=== PATIENT | female | born 1985 ===

== ENCOUNTER 2018-03-05 12:23 | Emergency (ER) | payer BC ==
[2018-03-05 13:22] LABS: BASO # 0.1 K/uL (0.0-0.2); EOS # 0.1 K/uL (0.0-0.7); HEMOGLOBIN 14.8 g/dL (11.0-16.0); LYMPH # 1.3 K/uL (1.0-4.3); LYMPH % 19.2 % (20.0-40.0); MEAN CELL VOLUME 91.4 fL (81.0-99.0); MEAN CORPUSCULAR HEMOGLOBIN 31.8 pg (27.0-31.0); MEAN CORPUSCULAR HGB CONC 34.8 g/dL (33.0-37.0); MEAN PLATELET VOLUME 7.5 fL (7.2-11.7); MONO # 0.5 K/uL (0.0-0.8); MONO % 7.1 % (0.0-10.0); NEUT # 4.7 K/uL (1.8-7.0); NEUT % 70.7 % (50.0-75.0); RBC 4.64 Mil/uL (3.80-5.20); RED CELL DISTRIBUTION WIDTH 12.8 % (11.5-14.5); WHITE BLOOD COUNT 6.6 K/uL (4.8-10.8)
--- NOTE | 2018-03-05 13:29 | C.PDOC ---
History Of Present Illness 32 year old female Miscarriage 1 at 8 weeks presents to the ED for evaluation of vaginal bleeding for 1 hours prior to arrival. The patient described the vaginal bleeding as heavy menstrual like and notes no prior ultrasound for current . Denies fever, chills, and any other associated symptoms. Time Seen by Provider: 03/05/18 12:56 Chief Complaint (Nursing): Female Genitourinary History Per: Patient History/Exam Limitations: no limitations Onset/Duration Of Symptoms: Hrs (x1) Current Symptoms Are (Timing): Still Present Recent travel outside of the [place]: No Past Medical History Reviewed: Historical Data, Nursing Documentation, Vital Signs Vital Signs: Last Vital Signs Temp 98.9 F 03/05/18 12:30 Pulse 88 03/05/18 12:30 Resp 20 03/05/18 12:30 BP 124/90 03/05/18 12:30 Pulse Ox 100 03/05/18 12:30 - Medical History PMH: Asthma Surgical History: Appendectomy Family History: States: Unknown Family Hx - Social History Hx Alcohol Use: Yes Hx Substance Use: No - Immunization History Hx Tetanus Toxoid Vaccination: No Hx Influenza Vaccination: No Hx Pneumococcal Vaccination: No Review Of Systems Except As Marked, All Systems Reviewed And Found Negative. Constitutional: Negative for: Fever, Chills Genitourinary: Positive for: Vaginal Bleeding Physical Exam - Physical Exam Appears: Well, Non-toxic, No Acute Distress, Other ( female.) Skin: Normal Color, Warm, Dry Head: Atraumatic, Normacephalic Eye(s): bilateral: Normal Inspection Oral Mucosa: Moist Neck: Normal ROM, Supple Chest: Symmetrical, No Deformity Cardiovascular: Rhythm Regular, No Murmur Respiratory: Normal Breath Sounds, No Rales, No Rhonchi, No Wheezing Gastrointestinal/Abdominal: Normal Exam, Soft, Tenderness (mild tenderness over the lower abdominal area. ) Extremity: Normal ROM Neurological/Psych: Oriented x3, Normal Speech, Normal Cognition ED Course And Treatment - Laboratory Results Result Diagrams: 03/05/18 13:17 03/05/18 13:17 Lab Interpretation: Abnormal (RH A+, QHCG 80,694,) Urine POC: Positive O2 Sat by Pulse Oximetry: 100 (RA) Pulse Ox Interpretation: Normal Reevaluation Time: 15:29 Reassessment Condition: Improved Medical Decision Making Medical Decision Making: Plan: -Blood sent. HCG Urine Urinalysis US Transvaginal Progress/Update: Patient stable for discharge home. Prescribed Folic Acid. Advised to return to the ED if symptoms worsen. complete AB continue to follow QHCG as needed. Disposition Doctor Will See Patient In The: Office Counseled Patient/Family Regarding: Studies Performed, Diagnosis - Disposition Referrals: [facility] [Outside] [facility]Outside[facility] Disposition: HOME/ ROUTINE Disposition Time: 15:29 Condition: GOOD Additional Instructions: QHC,694 Blood: A+ US: no hay embarasso en [place] examen de ultrasonido Va tener flujo menstrual mas ruthie y mas pesada que usual Repeta [place] QHCG en 3 hilario para asegurar que la hormona esta BAJANDO Sigue con [facility] OBGYN abena necessario Instructions: Miscarriage (DC), Repeated Miscarriage Forms: [employer] ([place]an) Print Language: CZECH - Clinical Impression Clinical Impression: Complete miscarriage - Scribe Statement The provider has reviewed the documentation as recorded by the Scribe (Ema Terrell) Provider Attestation: All medical record entries made by the Scribe were at my direction and personally dictated by me. I have reviewed the chart and agree that the record accurately reflects my personal performance of the history, physical exam, medical decision making, and the department course for this patient. I have also personally directed, reviewed, and agree with the discharge instructions and disposition.
[2018-03-05 13:31] LABS: HCG,QUALITATIVE URINE POSITIVE (NEGATIVE); URINE BILIRUBIN NEGATIVE (NEGATIVE); URINE BLOOD 3+ (NEGATIVE); URINE CLARITY Turbid (Clear); URINE COLOR Amber (YELLOW); URINE GLUCOSE (UA) NORMAL (Normal); URINE LEUKOCYTE ESTERASE NEG Leu/uL (Negative); URINE PROTEIN 2+ mg/dL (NEGATIVE); URINE UROBILINOGEN NORMAL mg/dL (0.2-1.0)
[2018-03-05 13:41] LABS: ALB/GLOB RATIO 1.4 (1.0-2.1); ALBUMIN 4.4 g/dL (3.5-5.0); ALT/SGPT 25 U/L (9-52); AST/SGOT 27 U/L (14-36); BLOOD UREA NITROGEN 10 mg/dL (7-17); CALCIUM 8.7 mg/dl (8.6-10.4); GFR NON-AFRICAN AMERICAN > 60
--- NOTE | 2018-03-05 15:22 | US ---
Date of service: 03/05/2018 HISTORY: 8 wks, ? ectopic vs miscarraige COMPARISON: None available. TECHNIQUE: Transabdominal and transvaginal FINDINGS: UTERUS: Measures 10.4 x 4.9 x 5.4 cm. No uterine mass. ENDOMETRIUM: Measures 14 mm in diameter. No intrauterine gestation identified. No endometrial fluid. CERVIX: No cervical abnormality identified. RIGHT OVARY: Measures 3.6 x 2.5 x 2.6 cm. No solid mass. Normal flow. LEFT OVARY: Measures 2.9 x 2.3 x 4.1 cm. No solid mass. Normal flow. Corpus luteum cyst, 2.7 cm diameter FREE FLUID: No significant free fluid noted. OTHER FINDINGS: None. IMPRESSION: No intrauterine gestation. Cannot exclude ectopic . Please correlate with beta HCG. 14 mm endometrium. Left ovarian corpus luteum.
[2018-03-05 15:53] VITALS: BP 113/76; PULSE 76; RESP 18; TEMP 99.2
[2018-03-05 19:41] VITALS: O2SAT 100
== END 2018-03-05 15:57 | disposition home or self-care (01) ==
LOC: C.ER 12:23
DX: O03.9 Complete or unspecified spontaneous abortion without complication (principal); Z3A.08 8 weeks gestation of pregnancy